=== PATIENT | male | born 1990 | race Caucasian/White ===

== ENCOUNTER 2017-08-27 15:31 | Inpatient (IN) | payer BC ==
[~2017-08-27] VITALS: Ht 185.4 cm; Wt 112.0 kg
[2017-08-27] MEDS ORDERED: SERT-181 PO (15:40)
--- NOTE | 2017-08-27 15:40 | ER Report ---
History and Physical Time Seen By MD: 15:39 HPI/ROS CHIEF COMPLAINT: Pancreatitis HISTORY OF PRESENT ILLNESS: 27-year-old male patient presents to emergency room with complaint of abdominal pain. Patient states that he gone out drinking last night and drink more than he normally does. He states when he woke up this morning he had some epigastric abdominal pain. He states he did have some vomiting. He states that his continued throughout the day. He rates his pain an 8 out of 10. Denies having any fevers, chills, or diarrhea. Patient was seen at [facility] [address] urgent care. He had a workup done which showed elevated lipase of 7000, he also had elevated LFTs of 99 and 200. At that time a CT scan of the abdomen and pelvis was ordered and the patient was referred to the emergency room after that was done. REVIEW OF SYSTEMS: Respiratory: No cough, no dyspnea. Cardiovascular: No chest pain, no palpitations. Gastrointestinal: As noted above Musculoskeletal: No back pain. Allergies: Coded Allergies: No Known Drug Allergies (Unverified , 08/27/17) Home Meds Reported Medications Sertraline Hcl (SERTRALINE HCL) 100 Mg Tablet, 1 TAB PO QDAY, TAB 08/27/17 Past Medical/Surgical History Patient has a past medical history of migraines, alcohol use. Patient denies any surgical history. Reviewed Nurses Notes: Yes Constitutional Vital Sign - Last 24 Hours 08/27/17 15:37 Temp 98.3 Pulse 59 Resp 14 B/P (MAP) 138/102 Pulse Ox 96 O2 Delivery Room Air Physical Exam General Appearance: The patient is alert, has no immediate need for airway protection and no current signs of toxicity. Respiratory: Chest is non tender, lungs are clear to auscultation. Cardiac: regular rate and rhythm Gastrointestinal: Abdomen is soft and tender in the epigastric region, no masses , bowel sounds normal. Musculoskeletal: Neck: Neck is supple and non tender. Extremities have full range of motion and are non tender. Skin: No rashes or lesions. DIFFERENTIAL DIAGNOSIS: After history and physical exam differential diagnosis was considered for pancreatitis, cholecystitis, choledocholithiasis Medical Decision Making ED Course/Re-evaluation ED Course Patient was admitted and examined, history and physical were obtained. Differential diagnoses were considered. On examination patient does have tenderness in the epigastric region. We did: The patient Teddy emergency room to have an official read on the CT scan. CT scan showed a on collocated pancreatitis. I decided is likely secondary to alcohol use. I did discuss the case with Dr. Kassandra Whitney agreed to accept the patient for admission with diagnosis of pancreatitis. I did speak with the patient who verbalized understanding and agreement with plan. Decision to Disposition Date: Aug 27, 2017 Decision to Disposition Time: 16:17 Depart Departure Latest Vital Signs Vital Signs Date Time Temp Pulse Resp B/P (MAP) Pulse Ox O2 Delivery O2 Flow Rate FiO2 08/27/17 15:37 98.3 59 14 138/102 96 Room Air Impression: Primary Impression: Acute alcoholic pancreatitis Condition: Condition Unchanged Disposition: Admitted from ER Problem Qualifiers Primary Impression: Acute alcoholic pancreatitis Acute pancreatitis complication: no infection or necrosis Qualified Codes: K85.20 - Alcohol induced acute pancreatitis without necrosis or infection JOSELO ECHAVARRIA Aug 27, 2017 15:40
[2017-08-27] MEDS ORDERED: MORPHINE 4 MG/ML SDV IVP ONE (15:50)
[2017-08-27] MEDS ORDERED: ONDANSETRON 4 MG/2 ML VIAL IVP ONE (15:50)
[2017-08-27] MEDS ORDERED: NS(*) 0.9% 1000 ML BAG 1,000 ML IV ONE (15:50)
[2017-08-27 17:09] VITALS: BP 147/94
[2017-08-27] MEDS ORDERED: ONDANSETRON 4 MG/2 ML VIAL IVP PRN (17:45)
[2017-08-27] MEDS ORDERED: PROMETHAZINE 25 MG/ML 1 ML AMP IVP PRN (17:45)
[2017-08-27] MEDS ORDERED: NALOXONE HCL 0.4 MG/ML VIAL IVP PRN (17:45)
--- NOTE | 2017-08-27 18:20 | History & Physical ---
History of Present Illness Chief Complaint The patient is a 27 year old male with PMH significant for anxiety who presents with severe abdominal pain after drinking too much last evening. History of Present Illness The patient states he drinks frequently and drinks too much. He has a FH of alcohol abuse (father). The patient has been struggling to control his drinking. He notes that he went out last night with friends and drank too much. He can not even quantify how much he drank. He woke up at 8 am with chest pain. He then developed stabbing abdominal pain with radiation to his back. He did have some nausea and vomiting. The pain continue to worsen and he presented to the ER for evaluation. The patient notes that he has had similar pain in the past after drinking too much but never this severe. The patient states that he takes sertraline for anxiety. He is interested in getting help with his alcohol issues and would be interested in talking with the substance abuse counselor. 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 He has a serious girlfriend. Hx Smoking: No Hx Alcohol Use: Yes Alcohol Use: Currently Hx Substance Use Disorder: No History of IV Drug Use: No Review of Systems All Systems Reviewed/Normal: Yes, Except as Noted Gastrointestinal: Nausea, Vomiting, Abdominal Pain (With radiation into his back.) Psychiatric: Anxiety Exam Vital Signs Vital Signs Date Time Temp Pulse Resp B/P (MAP) Pulse Ox O2 Delivery O2 Flow Rate FiO2 08/27/17 17:33 96 08/27/17 17:09 98.6 72 16 147/94 (111) Room Air General Appearance: Alert, Awake, No Acute Distress, Afebrile Neuro: No Gross deficits Eyes: PERRLA Cardiovascular: Regular Rate and Rhythm Respiratory: Clear to Auscultation GI: Other (Abdomen soft, nondistended, tendern in the midepigastrium to palpation. ) Lymph: Cervical Nodes Benign Extremities: Warm, Perfused, Other (No edema.) Integumentary: Skin Intact without Lesion / Mass Psych: Appropriate Mood & Affect Medical Decision Making Data Points Item Value Date Time Calcium Level 10.7 mg/dl H 08/27/17 1319 Total Bilirubin 0.9 mg/dl 08/27/17 1319 Aspartate Amino Transf (AST/SGOT) 99 U/L H 08/27/17 1319 Alanine Aminotransferase (ALT/SGPT) 200 U/L H 08/27/17 1319 Alkaline Phosphatase 104 U/L 08/27/17 1319 Total Protein 7.8 gm/dl 08/27/17 1319 Albumin 4.7 g/dl 08/27/17 1319 Amylase Level 402 U/L H 08/27/17 1319 Lipase 7503 U/L H 08/27/17 1319 EKG / Imaging Imaging FACILITY: [facility] PATIENT NAME: Juan Remy : 1990 MR: [id number] V: [id number] EXAM DATE: ORDERING PHYSICIAN: ROSITA JACOBS TECHNOLOGIST: Location: [facility] [place] Patient: Juan Remy : 1990 Visit/Account:[id number] Date of Sevice: 08/27/2017 ABDOMEN/PELVIS W/WO CONTRAST HISTORY: Left upper quadrant pain. Acute pancreatitis. TECHNIQUE: CT abdomen and pelvis without and with intravenous contrast. One of the following dose optimization techniques was utilized in the performance of this exam: Automated exposure control; adjustment of the mA and/ or kV according to the patient's size; or use of an iterative reconstruction technique. Specific details can be referenced in the facility's radiology CT exam operational policy. CONTRAST: 75 mL Isovue-370. COMPARISON: None. FINDINGS: Visualized lung bases: Negative. Hepatobiliary: Hepatomegaly measuring 21.7 cm at the midclavicular line. There is advanced hepatic steatosis. Otherwise negative. Spleen: Negative. Adrenals: Negative. Pancreas: Mild/moderate peripancreatic inflammation, greatest surrounding the pancreatic tail with a small amount of additional free fluid extending down the left paracolic gutter. No visualized pancreatic necrosis. No pseudocyst identified at this time. No enhancing lesions or ductal dilatation. The splenic vein is widely patent. Splenic artery is not aneurysmal. Kidneys/: Negative. GI: Nonspecific fat attenuation within the wall of the transverse and descending colon which can be seen in the setting of chronic inflammation/ inflammatory bowel disease. No evidence for acute disease. Vessels/spaces/nodes: Small volume free fluid. Borderline prominent periportal lymph nodes measuring up to 22 x 14 mm, likely reactive. There is minimal haziness of the root of the jejunal mesentery along with numerous but normal sized lymph nodes. This is most compatible with incidental mesenteric panniculitis. Bones/soft tissues: Negative. IMPRESSION: 1. CT findings of pancreatitis without visualized complication at this time. 2. Hepatomegaly with advanced hepatic steatosis. 3. Additional incidental/chronic findings, as above. Report Dictated By: Biju Diggs MD at 08/27/2017 4:00 PM Report E-Signed By: Biju Diggs MD at 08/27/2017 4:06 PM WSN:[id number] Pre-Admit Course ED Medications Morphine, Zofran, NS. Medical Record Review: No Assessment and Plan Problems: (1) Acute alcoholic pancreatitis Status: Acute Assessment & Plan: Will admit and make NPO except for ice chips. RU[employer] for pain control. IV fluids. Recheck labs in am. (2) Generalized anxiety disorder Status: Acute Assessment & Plan: On sertraline chronically. (3) Alcohol use Status: Chronic Assessment & Plan: The patient admits to drinking too much and has trouble controlling this. He has been trying to stop and is interested in help. Will have the substance abuse counselor see to give him some resources he can use. Time Spent on Plan of Care: < 30 min Venous Thromboembolism VTE Risk Physician Assess for VTE Risk: Yes Patient's VTE Risk: Low VTE Diagnostic Test 2 Days Prior to Admit: No Antithrombotics Is Pt On Any Antithrombotics?: Yes Exam Sepsis Risk: No Definite Risk Problem Qualifiers (1) Acute alcoholic pancreatitis: Acute pancreatitis complication: no infection or necrosis Qualified Codes: K85.20 - Alcohol induced acute pancreatitis without necrosis or infection IVETTE SANTA MD Aug 27, 2017 18:20
[2017-08-27] MEDS: HYDROmorphone PCA 6 MG/30 ML IV PRN (18:35)
[2017-08-27] MEDS: NS(*) 0.9% 1000 ML BAG 1,000 ML IV PRN (18:40)
[2017-08-27 23:02] VITALS: BP 161/92
[2017-08-28 03:09] VITALS: BP 154/96
[2017-08-28] MEDS: NS(*) 0.9% 1000 ML BAG 1,000 ML IV PRN ×2 (04:50→16:09)
[2017-08-28 05:52] LABS: PLATELET COUNT, AUTOMATED 207 K/uL (150-450)
[2017-08-28 07:40] VITALS: BP 148/107
--- NOTE | 2017-08-28 11:33 | Hospitalist Progress Note ---
Subjective Progress Notes Subjective He reports pain and nausea are improved. He has requested to talk with the Substance Abuse Counselor. Physical Exam Vital Signs Date Time Temp Pulse Resp B/P (MAP) Pulse Ox O2 Delivery O2 Flow Rate FiO2 08/28/17 07:45 Nasal Cannula 1.0 08/28/17 07:40 97.9 68 20 148/107 (121) 91 Intake and Output 08/29/17 07:00 # Voids 1 General Appearance: Alert, Awake Cardiovascular: Regular Rate and Rhythm Respiratory: Clear to Auscultation GI: Other (soft with slight tenderness reported over uuper quadrants/BS present ) : No CVA Tenderness Extremities: Warm, Perfused Result Diagram: 08/28/17 0545 08/28/17 0545 Item Value Date Time Lipase 2575 U/L H 08/28/17 0545 Triglycerides Level 113 mg/dl 08/28/17 0545 Albumin 3.9 g/dl 08/28/17 0545 Total Protein 6.8 gm/dl 08/28/17 0545 Alkaline Phosphatase 74 U/L 08/28/17 0545 Alanine Aminotransferase (ALT/SGPT) 145 U/L H 08/28/17 0545 Aspartate Amino Transf (AST/SGOT) 67 U/L H 08/28/17 0545 Total Bilirubin 1.7 mg/dl H 08/28/17 0545 Calcium Level 9.9 mg/dl 08/28/17 0545 Assessment and Plan Problems: (1) Acute alcoholic pancreatitis Status: Acute Assessment & Plan: Due to alcohol. Clinically improved. Will continue NPO for now. Continue IV fluids and IV pain meds and anti-emetics as needed. Watch labs closely. He does understand he will need to stop drinking completely. (2) Generalized anxiety disorder Status: Acute Assessment & Plan: On sertraline chronically. On hold for now as he is NPO. (3) Alcohol use Status: Chronic Assessment & Plan: The patient admits to drinking too much and has trouble controlling this. He has been trying to stop and is interested in help. Will have the substance abuse counselor see to give him some resources he can use. Exam Sepsis Risk: No Definite Risk Problem Qualifiers (1) Acute alcoholic pancreatitis: Acute pancreatitis complication: no infection or necrosis Qualified Codes: K85.20 - Alcohol induced acute pancreatitis without necrosis or infection NICHOL SANTA MD Aug 28, 2017 11:33
[2017-08-28 11:37] VITALS: Ht 185.4 cm; Wt 112.0 kg
[2017-08-28 12:01] VITALS: BP 146/99
[2017-08-28 15:20] VITALS: BP 148/87
[2017-08-28] MEDS: HYDROmorphone PCA 6 MG/30 ML IV PRN (17:57)
[2017-08-28 19:37] VITALS: BP 150/97
[2017-08-28] MEDS ORDERED: LORazepam 2 MG/ML VIAL IVP PRN (20:00)
[2017-08-28] MEDS: THIAMINE HCL 200 MG/2 ML INJ IVP SCH (20:20)
[2017-08-28 22:38] VITALS: BP 152/97
[2017-08-29] MEDS: NS(*) 0.9% 1000 ML BAG 1,000 ML IV PRN ×2 (02:25→13:32)
[2017-08-29 02:35] VITALS: BP 154/97
[2017-08-29 06:01] LABS: PLATELET COUNT, AUTOMATED 178 K/uL (150-450)
[2017-08-29 07:38] VITALS: BP 145/91
[2017-08-29] MEDS ORDERED: MAGNESIUM SUL* 2 GM/50 ML IVPB 50 ML IVPB ONE (08:30)
[2017-08-29] MEDS: THIAMINE HCL 200 MG/2 ML INJ IVP SCH (09:42)
[2017-08-29 10:55] VITALS: BP 139/83
--- NOTE | 2017-08-29 11:10 | Hospitalist Progress Note ---
Subjective Progress Notes Subjective This patient was admitted for pancreatitis. He had no acute issues overnight. Patient Complains of: Cardiovascular: No: Chest Pain Respiratory: No: Shortness of Breath Gastrointestinal: No Nausea, No Vomiting Physical Exam Vital Signs Date Time Temp Pulse Resp B/P (MAP) Pulse Ox O2 Delivery O2 Flow Rate FiO2 08/29/17 10:55 97.6 114 20 139/83 (101) 90 Nasal Cannula 08/29/17 02:35 1.0 Cardiovascular: Regular Rate and Rhythm Respiratory: Clear to Auscultation GI: Soft and Non-Tender Result Diagram: 08/29/1754308/29/17543 Item Value Date Time Lipase 588 U/L H 08/29/17543 Assessment and Plan Problems: (1) Acute alcoholic pancreatitis Status: Acute Assessment & Plan: He did present with abdominal pain and nausea. His lipase was elevated and his CT scan showed findings consistent with pancreatitis. He has been NPO. His pain and lipase have been improving. We will continue his NPO status through today and repeat a lipase in the morning. (2) Generalized anxiety disorder Status: Acute Assessment & Plan: He is on chronic treatment with sertraline. (3) Alcohol withdrawal Assessment & Plan: He has been placed on CIWA protocol. He required a dose of lorazepam last night, but his symptoms have been controlled since then. Exam Sepsis Risk: No Definite Risk Problem Qualifiers (1) Acute alcoholic pancreatitis: Acute pancreatitis complication: no infection or necrosis Qualified Codes: K85.20 - Alcohol induced acute pancreatitis without necrosis or infection CELESTE JOHNS DO Aug 29, 2017 11:10
[2017-08-29 13:33] VITALS: BP 138/99
--- NOTE | 2017-08-29 14:46 | Medical Nutrition Therapy ---
Nutrition Anthropometrics Height (Inches): 73.00 Height (Calculated Centimeters: 185.110183 Weight (Pounds): 247 Weight (Calculated Kilograms): 112.264 BMI Calculated: 32.58 Kb Nutrition Score: Adequate Kb Nutrition Risk Score: 20 Dietary Referral Nutrition Risk Factors: Nutrition Risk Comment: Nutritional Diagnosis Nutritional Risk Acuity 2: Pancreatitis Nutritional Risk Acuity 3: Alcohol abuse Past Medical History: HX of generalized anxiety disorder Nutritional Acuity: 2-Moderate Nutrition Diagnosis: Excessive Alcohol Intake Nutrition Etiology: Alcohol Addiction Nutrition Problem/Etiology/Sym: acute alcohol induced pancreatitis Energy Requirement: 2615 (kcal/day (23 kcal/kg)- [address] St. Jeor RMR (1707) AF 1.1, IF 1.1) Protein Requirement: 112 (g/day (1 g/kg)) Fluid Requirement: 2800 (mL/day (25 mL/kg)) Diet Type: NPO (Nothing by Mouth) Nutrition Intervention: Incr diet as tolerated Nutrition Monitoring & Eval Nutrition Goals: Eat 75-100% Meal Nutrition Follow-Up: Poor Intake RD Patient Assessment Time: [address] Assessment Type: RD Assessment Patient Nutrition Acuity: 2-Moderate Follow Up Date: Sep 03, 2017 Nutritional Comment: 08/28 Pt admitted for alcohol induced pancretitis. Lipase 2575, alb 3.9, AST 65, ALT 125. Pt curretnly NPO and reporting nausea. Will cont to monitor. 08/29 Pt diet order remains NPO today. Per physician note, pt pain and nausea are improving. Pt labs improving. Lipase 588, AST 54 ALT 107. Will continue to monitor for diet advancement. JACKY LYLE Aug 29, 2017 09:05
[2017-08-29 15:24] VITALS: BP 153/103
[2017-08-29 20:28] VITALS: BP 157/96
[2017-08-30] MEDS: NS(*) 0.9% 1000 ML BAG 1,000 ML IV PRN
[2017-08-30 02:39] VITALS: BP 149/105
[2017-08-30 07:14] VITALS: BP 141/82
[2017-08-30] MEDS: THIAMINE HCL 200 MG/2 ML INJ IVP SCH (08:40)
[2017-08-30 10:43] VITALS: BP 141/83
--- NOTE | 2017-08-30 11:11 | Hospitalist Progress Note ---
Subjective Progress Notes Subjective He has no complaints this morning. He reports his pain has improved. Patient Complains of: Cardiovascular: No: Chest Pain Respiratory: No: Shortness of Breath Physical Exam Vital Signs Date Time Temp Pulse Resp B/P (MAP) Pulse Ox O2 Delivery O2 Flow Rate FiO2 08/30/17 10:43 97.9 96 16 141/83 (102) 88 Room Air 08/30/17 07:20 1.5 General Appearance: Alert, Awake, No Acute Distress, Afebrile Cardiovascular: Regular Rate and Rhythm Respiratory: No Respiratory Distress, Clear to Auscultation GI: Soft and Non-Tender Psych: Alert & Oriented X3, Appropriate Mood & Affect Result Diagram: 08/29/17 0544 08/30/17 0548 Assessment and Plan Problems: (1) Acute alcoholic pancreatitis Status: Acute Assessment & Plan: He did present with abdominal pain and nausea. His lipase was elevated and his CT scan showed findings consistent with pancreatitis. He has been NPO. He will be advanced to a clear liquid diet. His Lipase is 417 this morning. We will repeat a lipase in the morning. (2) Generalized anxiety disorder Status: Acute Assessment & Plan: He is on chronic treatment with sertraline. (3) Alcohol withdrawal Assessment & Plan: He has been placed on CIWA protocol. He required a dose of lorazepam 08/28, but his symptoms have been controlled since then. Exam Sepsis Risk: No Definite Risk Problem Qualifiers (1) Acute alcoholic pancreatitis: Acute pancreatitis complication: no infection or necrosis Qualified Codes: K85.20 - Alcohol induced acute pancreatitis without necrosis or infection ANALY CASTELLANOS Aug 30, 2017 11:11
[2017-08-30 15:43] VITALS: BP 134/89
[2017-08-30] MEDS: traMADol 50 MG TAB PO PRN ×3 (15:43→22:37)
[2017-08-30 19:07] VITALS: BP 133/95
[2017-08-31 00:32] VITALS: BP 151/90
[2017-08-31 03:14] VITALS: BP 132/90
[2017-08-31 06:04] LABS: PLATELET COUNT, AUTOMATED 199 K/uL (150-450)
[2017-08-31 07:29] VITALS: BP 132/84
[2017-08-31] MEDS ORDERED: THIAMINE HCL 100 MG TAB PO SCH (09:00)
[2017-08-31] MEDS ORDERED: TRAM-420 PO (09:13)
[2017-08-31] MEDS ORDERED: ONDA4TAB PO (09:13)
--- NOTE | 2017-08-31 09:20 | Hospitalist Depart ---
Discharge Summary Reason for Hosp/Final Diag: (1) Acute alcoholic pancreatitis Status: Acute Hospital Course & Plan: He did present with abdominal pain and nausea. His lipase was elevated and his CT scan showed findings consistent with pancreatitis. He was NPO upon admission and his diet was advanced to low fat. His Lipase has increased to 512 this morning from 417 yesterday, however, he denies any pain today. He has been advised to abstain from alcohol and continue a low fat diet at home. He will follow up with a primary care physician next week. (2) Generalized anxiety disorder Status: Acute Hospital Course & Plan: He is on chronic treatment with sertraline. (3) Alcohol withdrawal Hospital Course & Plan: He was placed on CIWA protocol. He required a dose of lorazepam 08/28, but his symptoms have been controlled since then. Departure Latest Vital Signs Vital Signs 08/31/17 08/31/17 07:29 07:30 Temp 98.3 Pulse 84 Resp 16 B/P (MAP) 132/84 (100) Pulse Ox 89 O2 Delivery Nasal Cannula O2 Flow Rate 0.5 Weight (Pounds): 247 Weight (Ounces): 8.0 Result Diagram: 08/31/17 0501 08/31/17 0501 Condition: Improved Discharge: Home, Self Care Discharge Instructions Home Meds Active Scripts Tramadol Hcl (TRAMADOL HCL) 50 Mg Tablet, 50 MG PO Q6H Y for PAIN, #12 TAB Prov:ANALY CASTELLANOS 08/31/17 Reported Medications Sertraline Hcl (SERTRALINE HCL) 100 Mg Tablet, 1 TAB PO QDAY, TAB 08/27/17 Diet: Low Fat Activity: As Tolerated Venous Thromboembolism Antithrombotics Is Pt On Any Antithrombotics?: Yes Problem Qualifiers (1) Acute alcoholic pancreatitis: Acute pancreatitis complication: no infection or necrosis Qualified Codes: K85.20 - Alcohol induced acute pancreatitis without necrosis or infection ANALY CASTELLANOS Aug 31, 2017 09:20
== END 2017-08-31 11:40 | disposition home or self-care (01) | DRG 439 ==
LOC: ER 15:38 → MED 16:19
PROVIDERS: ADMIT Internal Medicine; ATTEND Internal Medicine
DX: K85.20 Alcohol induced acute pancreatitis without necrosis or infection (principal); F10.230 Alcohol dependence with withdrawal, uncomplicated; F41.1 Generalized anxiety disorder
CPT/HCPCS: 36415; 82040; 82247; 82310; 82374; 82435; 82565; 82947; 83690; 83735; 84075; 84132; 84155; 84295; 84450; 84460; 84478; 84520; 85025; 96361; 96374; 96375; 99285; J1170; J2060; J2270; J2405; J3411; J3475; J7030

== ENCOUNTER → 2017-08-27 | Outpatient (REF) | payer BC ==
[~2017-08-27] MED LIST: SERT-181 PO
[2017-08-27 13:58] LABS: PLATELET COUNT, AUTOMATED 316 K/uL (150-450)
--- NOTE | 2017-08-27 16:09 | RADIOLOGY IMAGING REPORT ---
FACILITY: [facility] PATIENT NAME: Juan Remy : 1990 MR: [id number] V: [id number] EXAM DATE: ORDERING PHYSICIAN: ROSITA JACOBS TECHNOLOGIST: Location: [facility] Patient: Juan Remy : 1990 Visit/Account:[id number] Date of Sevice: 08/27/2017 ABDOMEN/PELVIS W/WO CONTRAST HISTORY: Left upper quadrant pain. Acute pancreatitis. TECHNIQUE: CT abdomen and pelvis without and with intravenous contrast. One of the following dose optimization techniques was utilized in the performance of this exam: Autom ated exposure control; adjustment of the mA and/or kV according to the patient's size; or use of an i terative reconstruction technique. Specific details can be referenced in the facility's radiology C T exam operational policy. CONTRAST: 75 mL Isovue-370. COMPARISON: None. FINDINGS: Visualized lung bases: Negative. Hepatobiliary: Hepatomegaly measuring 21.7 cm at the midclavicular line. There is advanced hepatic steatosis. Otherwise negative. Spleen: Negative. Adrenals: Negative. Pancreas: Mild/moderate peripancreatic inflammation, greatest surrounding the pancreatic tail with a small amount of additional free fluid extending down the left paracolic gutter. No visualized pancr eatic necrosis. No pseudocyst identified at this time. No enhancing lesions or ductal dilatation. The splenic vein is widely patent. Splenic artery is not aneurysmal. Kidneys/: Negative. GI: Nonspecific fat attenuation within the wall of the transverse and descending colon which can be seen in the setting of chronic inflammation/inflammatory bowel disease. No evidence for acute diseas e. Vessels/spaces/nodes: Small volume free fluid. Borderline prominent periportal lymph nodes measurin g up to 22 x 14 mm, likely reactive. There is minimal haziness of the root of the jejunal mesentery along with numerous but normal sized lymph nodes. This is most compatible with incidental mesenteric panniculitis. Bones/soft tissues: Negative. IMPRESSION: 1. CT findings of pancreatitis without visualized complication at this time. 2. Hepatomegaly with advanced hepatic steatosis. 3. Additional incidental/chronic findings, as above. Report Dictated By: Biju Diggs MD at 08/27/2017 4:00 PM Report E-Signed By: Biju Diggs MD at 08/27/2017 4:06 PM [id number]
== END ==
PROVIDERS: ATTEND Family Medicine
DX: R10.9 Unspecified abdominal pain (principal)
CPT/HCPCS: 82040; 82150; 82247; 82310; 82374; 82435; 82565; 82947; 83690; 84075; 84132; 84155; 84295; 84450; 84460; 84520; 85025

== ENCOUNTER → 2017-08-27 | Outpatient (CLI) | payer BC ==
[~2017-08-27] MED LIST changes: +IOPAMIDOL 76% 75 ML INFUS BTL 75 ML ONE
== END ==
LOC: CT 14:42
PROVIDERS: ATTEND Family Medicine
DX: K74.60 Unspecified cirrhosis of liver (principal); K85.90 Acute pancreatitis without necrosis or infection, unspecified
CPT/HCPCS: 74178; Q9967